=== PATIENT | female | born 1990 | race Caucasian/White ===

== ENCOUNTER 2018-04-19 19:51 | Outpatient (REF) | payer BC, SELFPAY ==
[2018-04-21 14:18] LABS: Chlamydia Result Negative; GC Result Negative; Specimen Description CERVIX
[2018-04-21 20:15] LABS: C.trach, Misc, Amplified RNA Negative (Negative); N.gonorr, Misc, Amplified RNA Negative (Negative); SOURCE: THROAT
== END 2018-04-19 20:11 ==
LOC: LBN 19:51
PROVIDERS: PCP Nurse Practitioner Family; Visit Provider Nurse Practitioner Family
DX: J02.9 Acute pharyngitis, unspecified (principal); Z11.3 Encounter for screening for infections with a predominantly sexual mode of transmission
CPT/HCPCS: 87491; 87591; 87070

== ENCOUNTER 2018-05-16 13:56 | Outpatient (CLI) | payer BC, SELFPAY ==
[2018-05-18 10:26] LABS: Hepatitis B Surface Ag Negative (NEGAT)
[2018-05-18 10:50] LABS: HIV-1/2 Ag & Ab Screen Negative (NEGAT); Hepatitis C Ab w Rflx HCV PCR Negative (NEGAT)
[2018-05-18 10:59] LABS: Syphilis Serology (RPR) Negative (Negative)
== END 2018-05-16 14:16 ==
PROVIDERS: PCP Nurse Practitioner Family; Visit Provider Nurse Practitioner Women's Health
DX: Z11.3 Encounter for screening for infections with a predominantly sexual mode of transmission (principal); Z11.59 Encounter for screening for other viral diseases; Z11.4 Encounter for screening for human immunodeficiency virus [HIV]
CPT/HCPCS: 36415; 86803; 87340; 87389; 86592

== ENCOUNTER 2018-10-11 20:02 | Emergency (ER) | payer BC, SELFPAY ==
--- NOTE | 2018-10-11 20:05 | W.ED.GENAD ---
Discharge Plan Disposition Patient Disposition: HOME Condition: Stable Discharge Details Chief Complaint: RashLesion Clinical Impression: Pruritus Primary Care Provider: Brenda Ryder ED Provider: Nicolas Harrell Home Meds and New Rx's Prescriptions: New permethrin 5 % cream 1 applic TP Q14D 0 Days Qty: 60 RF: 0 Discharge Instructions Additional Instructions: IF you start to have an itching rash on your hands, armpits, bellybutton area apply the permethrin cream from neck down and leave on for 8-12 horus before ashing off. If still symptomatic after 1-2 weeks apply once more if you have difficulty breathing or persistent vomit return to the emergency department Medical Decision Making 28 yo female states she earlier had a rash on her upper back and neck that was itchy, states she has a hx of hives when anxious. She is concerned for scabies due to new living situation. She has no itching of the hands, and no rash visible at this time, asymptoamtic with no findings to suggest scabies, allergic reaction or other concerning rash. I doubt scabies but educated her on symptoms of this and will give her prescriptino if she does develop this, return precautions given Differential Diagnosis anxiety, hives, scabies HPI General Mode of arrival: ambulatory. Date/Time Provider Initiated Documentation: 10/11/18 20:05. Limitations to Documentation: no limitations. Information obtained by: patient. History of Present Illness 28 year old F presents to the emergency department with the chief complaint of itching rash earlier, described as moderate, and is localized to the neck. Patient reports no radiation. Patient started experiencing this day(s) (1) and it has been now resolved. No relieving factors improve symptom(s), No exacerbating factors reported . Patient did receive the following treatments prior to arrival, none Related Data Home Medications Medication Instructions Recorded Confirmed permethrin 1 applic TP Q14D 0 Days #60 gm 10/11/18 Previous Rx's Medication Instructions Recorded permethrin 1 applic TP Q14D 0 Days #60 gm 10/11/18 Allergies Allergy/AdvReac Type Severity Reaction Status Date / Time Sulfa (Sulfonamide Allergy Mild Skin Rash Unverified 10/11/18 20:09 Antibiotics) matt Allergy Mild Skin Rash Uncoded 10/11/18 20:09 Review of Systems Review of Systems All systems reviewed & are unremarkable except as noted in HPI and below Constitutional Denies chills, Denies fever(s) and Denies weakness ENT Denies change in voice Cardiovascular Denies chest pain and Denies dyspnea Respiratory Denies dyspnea Gastrointestinal Denies abdominal pain, Denies nausea and Denies vomiting Neurologic Denies weakness PFS Medical History Pharyngitis (Resolved) Idiopathic scoliosis (Inactive) Surgical History Tonsillectomy (06/03/16) Family History Mother Heart disease Depression Hyperlipidemia Father Heart disease Prediabetes CHF (congestive heart failure) Sister History of partial surgical removal of colon Sister No problems noted. 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 Pets and animals: Yes Pets and animals: dog(s) What type of physical activity do you participate in: weight lifting, running and yoga Duration: 30-45 minutes/day Frequency: 3-4 times per week Kalpana/Buddhism: No preference Special kalpana needs: No Seatbelt use: always Do you feel safe at home: Yes Do you feel safe in your relationship?: Yes Exam Const General: no acute distress Orientation: alert HENMT Head: normal to inspection Ears: external ears normal General nose exam: external nose normal Mouth: moist mucous membranes Eyes General: appearance normal, both eyes and all related structures Neck Neck: normal visual inspection Resp Effort & Inspection: normal respiratory effort and able to speak in complete sentences Cardio Rate: regular rate Skin General skin exam: no rashes or lesions noted Neuro General: alert and oriented x3 Extrem General: normal to inspection Psych Mental Status: mental status grossly normal
[2018-10-11 20:07] VITALS: BP 122/79; PULSE 95; RESP 16; TEMP 36.7; O2SAT 100
--- NOTE | 2018-10-11 20:12 | ED.GENADUL_ITS ---
Discharge Plan Disposition Patient Disposition: HOME Condition: Stable Discharge Details Chief Complaint: RashLesion Clinical Impression: Pruritus Primary Care Provider: Brenda Ryder ED Provider: Nicolas Harrell Home Meds and New Rx's Prescriptions: New permethrin 5 % cream 1 applic TP Q14D 0 Days Qty: 60 RF: 0 Discharge Instructions Additional Instructions: IF you start to have an itching rash on your hands, armpits, bellybutton area apply the permethrin cream from neck down and leave on for 8-12 horus before ashing off. If still symptomatic after 1-2 weeks apply once more if you have difficulty breathing or persistent vomit return to the emergency department Medical Decision Making 28 yo female states she earlier had a rash on her upper back and neck that was itchy, states she has a hx of hives when anxious. She is concerned for scabies due to new living situation. She has no itching of the hands, and no rash visible at this time, asymptoamtic with no findings to suggest scabies, allergic reaction or other concerning rash. I doubt scabies but educated her on symptoms of this and will give her prescriptino if she does develop this, return precautions given Differential Diagnosis anxiety, hives, scabies HPI General Mode of arrival: ambulatory . Date/Time Provider Initiated Documentation: 10/11/18 20:05 . Limitations to Documentation: no limitations . Information obtained by: patient . History of Present Illness 28 year old F presents to the emergency department with the chief complaint of itching rash earlier, described as moderate, and is localized to the neck. Patient reports no radiation. Patient started experiencing this day(s) (1) and it has been now resolved. No relieving factors improve symptom(s), No exacerbating factors reported . Patient did receive the following treatments prior to arrival, none Related Data Home Medications Medication Instructions Recorded Confirmed permethrin 1 applic TP Q14D 0 Days #60 gm 10/11/18 Previous Rx's Medication Instructions Recorded permethrin 1 applic TP Q14D 0 Days #60 gm 10/11/18 Allergies Allergy/AdvReac Type Severity Reaction Status Date / Time Sulfa (Sulfonamide Allergy Mild Skin Rash Unverified 10/11/18 20:09 Antibiotics) matt Allergy Mild Skin Rash Uncoded 10/11/18 20:09 Review of Systems Review of Systems All systems reviewed & are unremarkable except as noted in HPI and below Constitutional Denies chills, Denies fever(s) and Denies weakness ENT Denies change in voice Cardiovascular Denies chest pain and Denies dyspnea Respiratory Denies dyspnea Gastrointestinal Denies abdominal pain, Denies nausea and Denies vomiting Neurologic Denies weakness PFS Medical History Pharyngitis (Resolved) Idiopathic scoliosis (Inactive) Surgical History Tonsillectomy (06/03/16) Family History Mother Heart disease Depression Hyperlipidemia Father Heart disease Prediabetes CHF (congestive heart failure) Sister History of partial surgical removal of colon Sister No problems noted. 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 [employer] Pets and animals: Yes Pets and animals: dog(s) What type of physical activity do you participate in: weight lifting, running and yoga Duration: 30-45 minutes/day Frequency: 3-4 times per week Kalpana/Samaritan: No preference Special kalpana needs: No Seatbelt use: always Do you feel safe at home: Yes Do you feel safe in your relationship?: Yes Exam Const General: no acute distress Orientation: alert HENMT Head: normal to inspection Ears: external ears normal General nose exam: external nose normal Mouth: moist mucous membranes Eyes General: appearance normal, both eyes and all related structures Neck Neck: normal visual inspection Resp Effort & Inspection: normal respiratory effort and able to speak in complete sentences Cardio Rate: regular rate Skin General skin exam: no rashes or lesions noted Neuro General: alert and oriented x3 Extrem General: normal to inspection Psych Mental Status: mental status grossly normal
== END 2018-10-11 20:19 | disposition home or self-care (01) ==
LOC: ER 20:23
PROVIDERS: Emergency Provider Emergency Medicine; PCP Nurse Practitioner Family
DX: L29.8 Other pruritus (principal)
CPT/HCPCS: 99283

== ENCOUNTER 2018-12-06 09:44 | Outpatient (REF) | payer BC, SELFPAY ==
[2018-12-07 13:19] LABS: Chlamydia Result Negative; GC Result Negative; Specimen Description CERVIX
== END 2018-12-06 10:04 ==
LOC: LBN 09:44
PROVIDERS: PCP Nurse Practitioner Family; Visit Provider Nurse Practitioner Women's Health
DX: Z11.3 Encounter for screening for infections with a predominantly sexual mode of transmission (principal)
CPT/HCPCS: 87491; 87591

== ENCOUNTER 2019-05-08 01:28 | Outpatient (CLI) | payer SELFPAY ==
--- NOTE | 2019-05-08 09:43 | DI.US_ITS ---
EXAM: US BREAST LT COMPLETE CLINICAL HISTORY: Painful left breast for 4-5yrs, N64.4,-MASTODYNIA TECHNIQUE: Ultrasound performed using standard protocol. COMPARISON: No exams were available for comparison FINDINGS: No cyst or mass is identified. No skin thickening or sebaceous cyst is seen. IMPRESSION: Negative left breast ultrasound.
== END 2019-05-08 01:48 ==
PROVIDERS: PCP Nurse Practitioner Family; Visit Provider Nurse Practitioner Family
DX: N64.4 Mastodynia (principal)
CPT/HCPCS: 76642

== ENCOUNTER 2019-11-28 13:10 | Outpatient (REF) | payer MEDICAID, SELFPAY ==
[2019-11-29 15:04] LABS: Chlamydia Result Negative (Negative); GC Result Negative (Negative)
== END 2019-11-28 13:30 ==
LOC: LBN 13:10
PROVIDERS: PCP Nurse Practitioner Family; Visit Provider Nurse Practitioner Women's Health
DX: Z11.3 Encounter for screening for infections with a predominantly sexual mode of transmission (principal)
CPT/HCPCS: 87491; 87591

== ENCOUNTER 2020-03-03 20:53 | Outpatient (REF) | payer MEDICAID, SELFPAY ==
[2020-03-03 21:32] LABS: Abs Immature Grans 0.02 10^3/uL (0.0-0.06); Absolute Basophil Count 0.04 10^3/uL (0.0-0.2); Absolute Lymphocyte Count 2.03 10^3/uL (1.2-3.4); Absolute Monocyte Count 0.52 10^3/uL (0.1-0.8); Absolute Neutrophil Count 6.28 10^3/uL (1.2-6.7); Basophils % 0.4; Eosinophils % 1.1; HCT 45.2 % (36.0-46.0); HGB 14.8 g/dL (11.2-15.7); Immature Grans % 0.2; Lymphocytes % 22.6; MCH 31.4 pg (27.0-33.0); MCHC 32.7 % (32.0-36.0); MCV 95.8 fL (80-95); MPV 9.8 fL (8.0-11.0); Monocytes % 5.8; Neutrophils % 69.9; Nucleated RBC 0 %; Platelet Count 308 10^3/uL (130-400); RBC 4.72 10^6/uL (3.93-5.22); RDW 11.7 % (11.7-14.6); RDW-SD 40.8 fL; WBC 8.99 10^3/uL (4.4-10.8)
[2020-03-03 21:48] LABS: ALT 25 U/L (14-59); AST 17 U/L (15-37); Albumin 4.3 g/dL (3.4-5.0); Alkaline Phosphatase 68 U/L (46-116); Anion Gap 6.5 mmol/L (3-11); BUN 11 mg/dL (7-18); Bilirubin, Total 0.6 mg/dL (0.2-1.0); CO2 30.5 mmol/L (21.0-32.0); CREATININE 0.78 mg/dL (0.55-1.02); Calcium 9.2 mg/dL (8.5-10.1); Calculated LDL 87 mg/dL (<100); Chloride 107 mmol/L (98-107); Cholesterol 167 mg/dL (<200); Glucose 88 mg/dL (74-106); HDL Cholesterol 69 mg/dL (40-60); Magnesium 2.3 mg/dL (1.8-2.4); Potassium 4.4 mmol/L (3.5-5.1); Sodium 144 mmol/L (136-145); TSH (W/Ref FT4) 0.65 uIU/mL (0.36-3.74); Total Protein 7.5 g/dL (6.4-8.2); Triglyceride 59 mg/dL (<150)
[2020-03-05 11:11] LABS: Lyme Ab w Rflx to Lyme Confirm Negative (Negative)
[2020-03-06 17:16] LABS: Anaplasma phagocytophilum Negative (Negative); B. miyamotoi PCR Negative (Negative); Babesia divergens/MO-1 Negative (Negative); Babesia duncani Negative (Negative); Babesia microti Negative (Negative); Ehrlichia chaffeensis Negative (Negative); Ehrlichia ewingii/canis Negative (Negative); Ehrlichia muris eauclairensis Negative (Negative)
== END 2020-03-03 21:13 ==
LOC: LBN 20:53
PROVIDERS: PCP Nurse Practitioner Family; Visit Provider Physician Assistant
DX: R00.2 Palpitations (principal); R53.83 Other fatigue
CPT/HCPCS: 80053; 80061; 87798; 83735; 84443; 85025; 86618

== ENCOUNTER 2021-06-25 12:16 | Outpatient (REF) | payer MEDICAID, SELFPAY ==
--- NOTE | 2021-06-25 11:45 | PAPFT_PTH ---
PATIENT: Mireya Johnson LOC: [facility] U#:[id number] AGE/SX: 31/F ROOM: RE06/25/[address]: TEE Lacey : 1990 BED: DIS: 06/25/2021 SPEC #: [id number] RECD: 06/29/21 12:52 STATUS: MONTY REQ #: [id number] VENUS: 06/25/21 11:[address]: Brenda Ryder DEPT: [facility] Cytology RECD BY: Sheryl Baeza Tissues: 1 - CX/ENDOCX FOR PAP SMEARS Procedures: PAP THIN PREP/UVM Screening HPV DNA PROBE Comments: [id number]
== END 2021-06-25 12:17 | disposition home or self-care (01) ==
LOC: LBN 12:16
PROVIDERS: PCP Nurse Practitioner Family; Visit Provider Nurse Practitioner Family
DX: Z12.4 Encounter for screening for malignant neoplasm of cervix (principal); Z11.51 Encounter for screening for human papillomavirus (HPV)
CPT/HCPCS: 88142; 87624

== ENCOUNTER 2021-09-24 02:07 | Outpatient (CLI) | payer MEDICAID, SELFPAY ==
--- NOTE | 2021-09-24 07:45 | DI.US_ITS ---
Exam(s) US SOFT TISSUE HEAD OR NECK EXAM: US SOFT TISSUE HEAD OR NECK CLINICAL HISTORY: Left sided upper neck pain, inferior to mastoid pr,M54.2. TECHNIQUE: Ultrasound was performed using standard protocol. COMPARISON: No exams were available for comparison FINDINGS: Sonographic assessment utilizing grayscale and color Doppler imaging was performed and targeted to th e area of clinical concern. There is a 1.2 x 0.6 x 0.8 cm sonographically benign-appearing lymph node in the left neck near the a steven of palpable concern. No suspicious cystic or solid masses are seen. IMPRESSION: No suspicious cystic or solid mass is seen in the left neck. DATA REPOSITORY:
== END 2021-09-24 02:27 ==
PROVIDERS: PCP Nurse Practitioner Family; Visit Provider Nurse Practitioner Family
DX: M54.2 Cervicalgia (principal)
CPT/HCPCS: 76536

== ENCOUNTER 2022-06-11 01:21 | Outpatient (CLI) | payer MEDICAID, SELFPAY ==
[2022-06-11 13:09] LABS: Anion Gap 7.9 mmol/L (3-11); BUN 19 mg/dL (7-18); CO2 29.1 mmol/L (21.0-32.0); CREATININE 0.9 mg/dL (0.55-1.02); Calcium 8.9 mg/dL (8.5-10.1); Calculated LDL 95 mg/dL (<100); Chloride 102 mmol/L (98-107); Cholesterol 172 mg/dL (<200); Estimated GFR 87.65 (mL/min/1.73m2); Glucose 97 mg/dL (74-106); HDL Cholesterol 70 mg/dL (40-60); Potassium 3.7 mmol/L (3.5-5.1); Sodium 139 mmol/L (136-145); Triglyceride 37 mg/dL (<150)
== END 2022-06-11 01:22 | disposition home or self-care (01) ==
LOC: LOS 01:21
PROVIDERS: PCP Nurse Practitioner Family; Visit Provider Nurse Practitioner Family
DX: Z00.00 Encounter for general adult medical examination without abnormal findings (principal)
CPT/HCPCS: 36415; 80048; 80061

== ENCOUNTER 2023-08-18 09:08 | Outpatient (CLI) | payer BC, SELFPAY ==
[2023-08-18 19:27] LABS: HIV-1/2 Ag & Ab Screen Negative (Negative)
[2023-08-18 19:53] LABS: Hepatitis C Ab w Rflx HCV PCR Negative (Negative)
[2023-08-19 11:16] LABS: Syphilis Serology (RPR) Negative (Negative)
== END 2023-08-18 09:09 | disposition home or self-care (01) ==
LOC: LOS 09:08
PROVIDERS: PCP Nurse Practitioner Family; Referring Provider Nurse Practitioner Family; Visit Provider Nurse Practitioner Family
DX: Z00.00 Encounter for general adult medical examination without abnormal findings (principal)
CPT/HCPCS: 36415; 86803; 87389; 86592

== ENCOUNTER 2023-08-18 12:45 | Outpatient (REF) | payer BC, SELFPAY ==
--- NOTE | 2023-08-18 09:00 | PAPFT_PTH ---
PATIENT: Mireya Johnson LOC: [facility] U#:[id number] AGE/SX: 33/F ROOM: RE08/18/[address]: TEE Lacey : 1990 BED: DIS: 08/18/2023 SPEC #: [id number] RECD: 08/18/23 13:09 STATUS: MONTY RERudolph #: [id number] VENUS: 08/18/23 09:[address]: Brenda Ryder DEPT: [facility] Cytology RECD BY: Sheryl Baeza Tissues: 1 - CX/ENDOCX FOR PAP SMEARS Procedures: PAP THIN PREP/UVM Screening HPV DNA PROBE Comments: [id number] (CHLAMYDIA/GC)
[2023-08-19 14:28] LABS: Chlamydia Result Negative (Negative); GC Result Negative (Negative)
== END 2023-08-18 12:46 | disposition home or self-care (01) ==
LOC: LBN 12:45
PROVIDERS: PCP Nurse Practitioner Family; Visit Provider Nurse Practitioner Family
DX: Z12.4 Encounter for screening for malignant neoplasm of cervix (principal); Z11.51 Encounter for screening for human papillomavirus (HPV)
CPT/HCPCS: 87491; 87591; 88142; 87624

== ENCOUNTER → 2023-10-25 03:41 | Outpatient (CLI) | payer BC, SELFPAY ==
--- NOTE | 2023-10-25 08:00 | DI.US_ITS ---
Exam(s) US BREAST LT COMPLETE MG MAMMO DIAGNOSTIC BI EXAM: MAMMO DIAGNOSTIC BI AND COMPLETE LEFT BREAST ULTRASOUND CLINICAL HISTORY: Continued left breast pain,n64.4. TECHNIQUE: BILATERAL CC AND MLO mammographic images were obtained with 3D tomosynthesis technique an d utilizing computer aided detection (CAD). COMPLETE LEFT BREAST ULTRASOUND was performed including all 4 quadrants, the retroareolar region, and the left axilla. COMPARISON: None. This is a baseline mammogram and ultrasound on this 34-year-old patient who has been feeling pain (de nies lump) in the lower half of her left breast for few months. Denies injury. Denies puncture wounds/piercings. Denies nipple discharge. Denies feeling lumps in her armpit. Denies skin recent rash FINDINGS: DIAGNOSTIC BILATERAL MAMMOGRAM: The fibroglandular tissue pattern is moderately dense. There are no CAD designations. There are no spiculated masses nor malignant-appearing microcalcification groups in either breast. There is no significant architectural distortion or skin thickening-retraction COMPLETE LEFT BREAST ULTRASOUND: The only focal finding in the left breast is at the 4 o'clock position where there is a [address] benign microcyst. There are no solid lesions in all 4 quadrants. Scanning of the left axilla reveals normal-appearing lymph nodes. IMPRESSION: 1.No radiographic evidence of malignancy 2. Solitary small benign microcysts at the 4 o'clock position of the left breast. No solid lesions seen. Appropriate follow-up is repeat left breast imaging in a few months time if this patient's symptoms p ersist, earlier if clinically indicated.. The patient was informed of the findings and follow-up recommendations by myself prior to leaving the department today. BI-RADS Category 2 - Benign Findings Breast Density - Category C - Heterogeneously dense Breast density Category C or D implies that the patient has dense breast tissue. Dense breast tissue can make it harder to find cancer on a mammogram. Dense breast tissue is also associated with an incr eased risk of breast cancer. This information about the result of the mammogram report was provided to the patient to raise their awareness. Use this report when you speak with the patient about their risks for breast cancer, which includes their family history. At that time, you may recommend additional screening tests (Ultrasoun d or MRI) as these tests may add significant information. A negative radiographic report should not delay biopsy if a dominant or clinically suspicious mass is present. Up to ten percent of cancers are not identified on mammography. A negative report may reinforce clinical impression. Adenosis and dense breasts may obscure an underlying neoplasm. False positive reports average 6 to 10%. Patient will receive a letter notifying them of these results.
== END ==
LOC: DI 03:43
PROVIDERS: PCP Nurse Practitioner Family; Visit Provider Nurse Practitioner Family
DX: N64.4 Mastodynia (principal); Z12.31 Encounter for screening mammogram for malignant neoplasm of breast
CPT/HCPCS: 76642; 77062; 77066; G0279

== ENCOUNTER 2024-03-30 08:42 | Outpatient (REF) | payer BC, SELFPAY ==
[2024-04-02 11:55] LABS: Chlamydia Result Negative (Negative); GC Result Negative (Negative)
== END 2024-03-30 08:43 | disposition home or self-care (01) ==
LOC: LBN 08:42
PROVIDERS: PCP Nurse Practitioner Family; Visit Provider Obstetrics & Gynecology
DX: Z11.3 Encounter for screening for infections with a predominantly sexual mode of transmission (principal)
CPT/HCPCS: 87491; 87591

== ENCOUNTER 2024-03-30 08:45 | Outpatient (CLI) | payer BC, SELFPAY ==
[2024-04-02 09:55] LABS: HIV-1/2 Ag & Ab Screen Negative (Negative)
[2024-04-02 10:29] LABS: Hepatitis A Antibody IgM Negative (Negative); Hepatitis B Core Antibody Negative (Negative); Hepatitis B surface Ag Negative (Negative); Hepatitis C Ab w Rflx HCV PCR Negative (Negative)
[2024-04-02 11:38] LABS: Syphilis Serology (RPR) Negative (Negative)
== END 2024-03-30 08:46 | disposition home or self-care (01) ==
LOC: LBO 08:46
PROVIDERS: PCP Nurse Practitioner Family; Visit Provider Obstetrics & Gynecology
DX: Z11.3 Encounter for screening for infections with a predominantly sexual mode of transmission (principal)
CPT/HCPCS: 36415; 86704; 86709; 86803; 87340; 87389; 86592